=== PATIENT | male | born 1980 | race Caucasian/White ===

== ENCOUNTER 2022-06-22 21:32 | Emergency (ER) | payer SELFPAY | END 2022-06-22 22:38 | disposition left against medical advice (07) | LOC: ER 21:32 | DX: Z53.21 Procedure and treatment not carried out due to patient leaving prior to being seen by health care provider (principal) ==

== ENCOUNTER 2023-08-24 18:17 | Emergency (ER) | payer BC ==
[~2023-08-24] VITALS: Ht 190.5 cm; Wt 99.8 kg
[~2023-08-24 18:17] MED LIST: CHLO25CA22 PO
[2023-08-24 18:20] VITALS: O2SAT 94
== END 2023-08-24 19:04 | disposition left against medical advice (07) ==
LOC: ER 18:19
DX: R10.11 Right upper quadrant pain (principal); F10.10 Alcohol abuse, uncomplicated; F17.210 Nicotine dependence, cigarettes, uncomplicated; Z76.5 Malingerer [conscious simulation]; Z79.899 Other long term (current) drug therapy; Y90.9 Presence of alcohol in blood, level not specified
CPT/HCPCS: A4663

== ENCOUNTER 2025-02-23 07:36 | Inpatient (IN) | payer BC ==
[~2025-02-23] VITALS: Ht 190.5 cm; Wt 102.1 kg
[2025-02-23] MEDS ORDERED: APIX5TAB PO (07:53)
[2025-02-23 10:42] LABS: BASOPHILS % (AUTO) 0.9 % (0.0-2.0); EOSINOPHILS # (AUTO) 0.1 K/uL (0.0-0.7); EOSINOPHILS % (AUTO) 1.1 % (0.0-7.0); HEMATOCRIT 46.8 % (36.7-47.1); HEMOGLOBIN 15.7 g/dL (12.5-16.3); LYMPHOCYTES # (AUTO) 2.4 K/uL (0.8-4.8); LYMPHOCYTES % (AUTO) 52.3 % (20.5-51.5); MEAN CORPUSCULAR HEMOGLOBIN 31.5 uug (23.8-33.4); MEAN CORPUSCULAR HGB CONC 34 g/dL (32.5-36.3); MEAN CORPUSCULAR VOLUME 93.9 fL (73.0-96.2); MONOCYTES # (AUTO) 0.3 K/uL (0.1-1.30); NEUTROPHILS # (AUTO) 1.8 K/uL (1.8-8.9); NEUTROPHILS % (AUTO) 39.7 % (38.5-71.5); PLATELET COUNT (AUTO) 212 K/uL (152-348); RED BLOOD CELL COUNT(AUTO) 4.98 MIL/uL (4.06-5.63); RED CELL DISTRIBUTION WIDTH 18.1 % (12.1-16.2); WHITE BLOOD COUNT (AUTO) 4.6 K/uL (3.6-10.2)
[2025-02-23 10:45] LABS: DIFFERENTIAL COMMENT 1
[2025-02-23 10:50] LABS: CALCIUM 8.3 mg/dL (8.5-10.1); CARBON DIOXIDE 29 mmol/L (21-32); CHLORIDE 110 mmol/L (98-107); CREATININE 0.8 mg/dL (0.6-1.3); GLUCOSE 91 mg/dL (74-106); POTASSIUM 3.5 mmol/L (3.5-5.1); SODIUM SERUM 147 mmol/L (136-145); UREA NITROGEN, BLOOD 6 mg/dL (7-18)
[2025-02-23] MEDS ORDERED: SWABABLE VALVE TRANSFER SET EA MC ONE (10:53)
[2025-02-23] MEDS ORDERED: IOHEXOL 350 100 ML INFUS..BTL ONE (10:53)
[2025-02-23] MEDS ORDERED: IV NORMAL SALINE 250 ML IV ONE (10:53)
[2025-02-23 11:07] LABS: ETHANOL 268 MG/DL (0-10)
[2025-02-23 11:10] LABS: ALANINE AMINOTRANSFERASE 48 U/L (16-63); ALBUMIN 2.7 g/dL (3.4-5.0); ALKALINE PHOSPHATASE 162 U/L (50-136); ASPARTATE AMINOTRANSFERASE 77 U/L (15-37); BILIRUBIN,DIRECT 0.2 mg/dL (0.0-0.2); TOTAL PROTEIN, SERUM 7.9 g/dL (6.4-8.2)
[2025-02-23 11:53] LABS: ACETAMINOPHEN < 10.0 ug/mL (10-30); BILIRUBIN,TOTAL 0.3 mg/dL (0.2-1.0)
[2025-02-23 11:54] LABS: NT-PRO BNP 45 pg/mL (0-125)
[2025-02-23] MEDS ORDERED: ONDANSETRON 4 MG/2 ML VIAL IV PRN (14:45)
[2025-02-23] MEDS ORDERED: ACETAMINOPHEN 325 MG TABLET PO PRN (14:45)
[2025-02-23] MEDS ORDERED: MAGNESIUM HYDROXIDE 30 ML LIQUID UDC PO PRN (14:45)
[2025-02-23 16:37] VITALS: BP 125/77; TEMP 98.2; O2SAT 91
[2025-02-23] MEDS: IV 1/2NS 1000 ML 1,000 ML IV ONE (17:52)
[2025-02-23] MEDS: THIAMINE HCL 100 MG TABLET PO SCH (17:56)
[2025-02-23] MEDS: CHLORDIAZEPOXIDE HCL 25 MG CAPSULE PO SCH (17:56)
[2025-02-23] MEDS: FOLIC ACID 1 MG TABLET PO SCH (17:56)
[2025-02-23 19:00] VITALS: BP 125/81; TEMP 97.7; O2SAT 96
[2025-02-23 20:06] LABS: *BILIRUBIN,URIN NEGATIVE (NEGATIVE); *BLOOD, URINE NEGATIVE (NEGATIVE); *CLARITY,URINE CLEAR (CLEAR); *COLOR,URINE YELLOW (YELLOW); *KETONES,URINE NEGATIVE (NEGATIVE); *PROTEIN,URINE NEGATIVE (NEGATIVE); *UROBILINOGEN,URINE 0.2 E.U./dl (NORMAL); LEUKOCYTE ESTERASE ,URINE NEGATIVE (NEGATIVE); NITRITE, URINE NEGATIVE (NEGATIVE); UGLUCOSE NEGATIVE (NEGATIVE)
[2025-02-23] MEDS: LORAZEPAM 0.5 MG TABLET PO PRN (20:24)
[2025-02-23] MEDS: ENOXAPARIN SODIUM 100 MG/ML DISP.SYRIN SQ SCH (20:28)
[2025-02-23 20:45] LABS: *AMPHETAMINE, URINE POSITIVE (NEGATIVE); *BARBITURATE, URINE NEGATIVE (NEGATIVE); *BENZODIAZEPINE, URINE NEGATIVE (NEGATIVE); *CANNABINOID, URINE NEGATIVE (NEGATIVE); *COCCAINE, URINE NEGATIVE (NEGATIVE); *OPIATE, URINE NEGATIVE (NEGATIVE); *PHENCYCLIDINE SCREEN,URINE NEGATIVE (NEGATIVE); FENTANYL, URINE NEGATIVE (NEGATIVE)
[2025-02-24] VITALS: BP 141/93; TEMP 97.6; O2SAT 99
[2025-02-24 04:00] VITALS: BP 144/90; TEMP 98; O2SAT 94
[2025-02-24] MEDS: PANTOPRAZOLE SODIUM 40 MG TABLET.DR PO SCH (06:13)
[2025-02-24 07:02] LABS: BASOPHILS % (AUTO) 0.9 % (0.0-2.0); EOSINOPHILS % (AUTO) 0.6 % (0.0-7.0); HEMATOCRIT 47.1 % (36.7-47.1); HEMOGLOBIN 15.9 g/dL (12.5-16.3); LYMPHOCYTES # (AUTO) 0.7 K/uL (0.8-4.8); LYMPHOCYTES % (AUTO) 13.2 % (20.5-51.5); MEAN CORPUSCULAR HEMOGLOBIN 31.3 uug (23.8-33.4); MEAN CORPUSCULAR HGB CONC 34 g/dL (32.5-36.3); MEAN CORPUSCULAR VOLUME 92.8 fL (73.0-96.2); MONOCYTES # (AUTO) 0.4 K/uL (0.1-1.30); MONOCYTES % (AUTO) 7.2 % (0.0-11.0); NEUTROPHILS # (AUTO) 4.1 K/uL (1.8-8.9); NEUTROPHILS % (AUTO) 78.1 % (38.5-71.5); PLATELET COUNT (AUTO) 165 K/uL (152-348); RED BLOOD CELL COUNT(AUTO) 5.08 MIL/uL (4.06-5.63); RED CELL DISTRIBUTION WIDTH 17.7 % (12.1-16.2); WHITE BLOOD COUNT (AUTO) 5.3 K/uL (3.6-10.2)
[2025-02-24 07:14] LABS: DIFFERENTIAL COMMENT 1
[2025-02-24 07:17] LABS: CALCIUM 8.7 mg/dL (8.5-10.1); CARBON DIOXIDE 26 mmol/L (21-32); CHLORIDE 100 mmol/L (98-107); CHOLESTEROL 128 mg/dL (<200); CREATININE 0.6 mg/dL (0.6-1.3); GLUCOSE 75 mg/dL (74-106); HDL CHOLESTEROL 68 mg/dL (40-60); MAGNESIUM 1.4 mg/dL (1.8-2.4); PHOSPHOROUS 3.3 mg/dL (2.5-4.9); POTASSIUM 3.8 mmol/L (3.5-5.1); SODIUM SERUM 137 mmol/L (136-145); TRIGLYCERIDES 72 MG/DL (30-150); UREA NITROGEN, BLOOD 5 mg/dL (7-18)
[2025-02-24 07:55] VITALS: BP 143/92; TEMP 97.9; O2SAT 94
[2025-02-24 08:07] LABS: AFP, TUMOR MARKER 2.1 ng/mL (0.0-6.9); CARCINOEMBRYONIC AG (CEA) 2.6 ng/mL (0.0-4.7)
[2025-02-24] MEDS: MAGNESIUM SULFATE/D5W 100 ML IV SCH (10:52)
[2025-02-24 11:19] VITALS: BP 136/93; TEMP 98.4; O2SAT 95
[2025-02-24 15:38] LABS: FREE PSA 0.18 ng/mL (0.00-45); PROSTATE SPECIFIC ANTIGEN 0.89 ng/mL (0.00-4.00)
[2025-02-24 15:45] VITALS: BP 138/97; TEMP 97.7; O2SAT 97
[2025-02-24] MEDS: WARFARIN SODIUM 5 MG TABLET PO SCH (17:00)
[2025-02-24 19:25] VITALS: BP 131/92; TEMP 97.4; O2SAT 97
[2025-02-25 08:07] LABS: HOMOCYSTEINE, PLASMA 46.2 umol/L (0.0-14.5)
== END 2025-02-24 21:12 | disposition left against medical advice (07) | DRG 299 ==
LOC: ER 07:36 → TELE3 16:08
PROVIDERS: ADMIT Nurse Practitioner Family; ATTEND Nurse Practitioner Family
DX: I82.432 Acute embolism and thrombosis of left popliteal vein (principal); I26.94 Multiple subsegmental thrombotic pulmonary emboli without acute cor pulmonale; E87.0 Hyperosmolality and hypernatremia; I82.442 Acute embolism and thrombosis of left tibial vein; Z00.00 Encounter for general adult medical examination without abnormal findings; F17.210 Nicotine dependence, cigarettes, uncomplicated; Z91.148 Patient's other noncompliance with medication regimen for other reason; Z86.16 Personal history of COVID-19; R93.7 Abnormal findings on diagnostic imaging of other parts of musculoskeletal system; Y90.8 Blood alcohol level of 240 mg/100 ml or more; F10.129 Alcohol abuse with intoxication, unspecified; F15.10 Other stimulant abuse, uncomplicated; E83.51 Hypocalcemia; E88.09 Other disorders of plasma-protein metabolism, not elsewhere classified; K76.0 Fatty (change of) liver, not elsewhere classified; I10 Essential (primary) hypertension
CPT/HCPCS: 36415; 71045; 71275; 78306; 82105; 82378; 83090; 83735; 84100; 84153; 84443; 84484; 85025; 85305; 85730; 86301; 93307; A4606; A4663; A9503; G0378; G0480; J1650; J3475; Q9967